=== PATIENT | male | born 1955 | race African-American/Black ===

== ENCOUNTER 2024-08-27 08:46 | Emergency (ER) | payer BC ==
[~2024-08-27] VITALS: Ht 188 cm; Wt 116.0 kg
[2024-08-27 08:56] VITALS: O2SAT 100
[2024-08-27 10:03] VITALS: BP 120/102; PULSE 72; RESP 16; TEMP 36.94740; O2SAT 100
== END 2024-08-27 10:02 | disposition home or self-care (01) ==
LOC: ER 08:46
DX: H11.31 Conjunctival hemorrhage, right eye (principal); I10 Essential (primary) hypertension
CPT/HCPCS: 99281